=== PATIENT | female | born 1990 | race Hispanic/Latino ===

== ENCOUNTER 2024-07-09 17:50 | Emergency (ER) | payer OTHER ==
[~2024-07-09] VITALS: Ht 170.2 cm; Wt 76.7 kg
[2024-07-09 18:06] VITALS: PULSE 76; RESP 18; TEMP 98.8
[2024-07-09] MEDS: DIPHTH,PERTUSS(ACELL),TET VAC 0.5 ML SYRINGE IM ONE (18:15)
[2024-07-09 18:52] VITALS: BP 118/72; RESP 18; O2SAT 95
== END 2024-07-09 18:52 | disposition home or self-care (01) ==
LOC: FSED 18:08
DX: S61.002A Unspecified open wound of left thumb without damage to nail, initial encounter (principal); W26.0XXA Contact with knife, initial encounter; Y93.G3 Activity, cooking and baking; Y92.89 Other specified places as the place of occurrence of the external cause
CPT/HCPCS: 99282